=== PATIENT | male | born 1990 | race Caucasian/White ===

== ENCOUNTER → 2019-05-04 12:51 | Outpatient (CLI) | payer MEDICAID, SELFPAY ==
--- NOTE | ~2019-05-04 | XR_ITS ---
EXAMINATION: XR lumbar spine 2-3V EXAM DATE: 05/04/2019 13:25 INDICATION: Low back pain. TECHNIQUE: Lumber spine frontal, lateral, lateral L5-S1 projections for interpretation. There is no prior study for comparison. FINDINGS: Mild lumbar levoscoliosis. Vertebral body and disc heights are well-maintained. There is 3 mm retrolisthesis L5 on S1. Facet joints are unremarkable. No spondylolysis. Sacrum, sacroiliac join ts, sacral arcuate lines are intact. Paraspinal soft tissue is unremarkable. IMPRESSION: Mild lumbar levoscoliosis. Reviewed, dictated and finalized at location B. 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
--- NOTE | ~2019-05-04 | XR_ITS ---
EXAMINATION: XR chest 2V EXAM DATE: 05/04/2019 13:25 INDICATION: Tobacco use. Low back pain. TECHNIQUE: Frontal and lateral projections of the chest obtained and reviewed. There is no prior megan dy for comparison. FINDINGS: The lungs are clear. There are no pleural effusions. The cardiomediastinal silhouette is within normal limits. There is no pneumothorax suspected. Mild thoracolumbar scoliosis. IMPRESSION: Clear lungs. Reviewed, dictated and finalized at location B. 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
== END ==
PROVIDERS: PCP Emergency Medicine; Visit Provider Emergency Medicine
DX: M54.5 Low back pain (principal)
CPT/HCPCS: 71046; 72100

== ENCOUNTER 2020-02-01 13:26 | Emergency (ER) | payer OTHER, SELFPAY ==
[2020-02-01 13:27] VITALS: BP 146/103; PULSE 94; RESP 18; TEMP 36.8; O2SAT 100
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
== END 2020-02-01 14:07 | disposition home or self-care (01) ==
PROVIDERS: Emergency Provider Emergency Medicine; PCP Emergency Medicine
DX: S06.0X0A Concussion without loss of consciousness, initial encounter (principal); Y35.813A Legal intervention involving manhandling, suspect injured, initial encounter
CPT/HCPCS: 99283

== ENCOUNTER 2020-09-18 17:43 | Emergency (ER) | payer OTHER, SELFPAY ==
--- NOTE | ~2020-09-18 | XR_ITS ---
EXAMINATION: XR chest 2V 09/18/2020 18:11 INDICATION: Chest pain and shortness of breath PROCEDURE: Two-view chest COMPARISON: 05/04/2019 FINDINGS: The lungs are clear. The lungs are hyperinflated which is consistent with, but not diagnost ic of chronic obstructive pulmonary disease. The cardiomediastinal silhouette is within normal limits . There are no pleural effusions. There is no pneumothorax suspected. IMPRESSION: 1: NO ACUTE CARDIOPULMONARY DISEASE. Reviewed, dictated and finalized at location A.
[2020-09-18 17:45] VITALS: BP 144/97; PULSE 127; RESP 18; TEMP 36.3; O2SAT 100
--- NOTE | 2020-09-18 17:54 | ECG_ITS ---
Measurements Intervals [place] Rate: 119 P: 117 [place]: 136 QRS: 106 QRSD: 87 T: 127 QT: 308 QTc: 435 Interpretive Statements SINUS TACHYCARDIA ARM LEADS REVERSED BORDERLINE T WAVE ABNORMALITY- INFERIOR LEADS BASELINE ARTIFACT- I, II, AVR, AVL, AVF, V1 ABNORMAL ECG Electronically Signed On 09-19-2020 7:34:02 CDT by Reinaldo Ricks D.O.
[2020-09-18 18:04] LABS: Basophils Absolute Auto 0.1 K/mm3 (0.0-0.1); Basophils Percent Auto 0.7 % (0.2-1.2); Eosinophils Absolute Auto 0.2 K/mm3 (0-0.3); Eosinophils Percent Auto 1.7 % (0-4.4); Hematocrit 53.2 % (42.0-52.0); Hemoglobin 17.9 g/dL (14.0-18.0); Immature Granulocyte Absolute 0.16 K/mm3 (0.00-0.031); Immature Granulocyte Percent A 1.2 % (0-0.5); Lymphocytes Absolute Auto 2.81 K/mm3 (0.9-3.2); Lymphocytes Percent Auto 20.5 % (18.3-44.2); Mean Corpuscular HGB Conc 33.6 g/dl (32-36); Mean Corpuscular Hemoglobin 28.7 pg (26-34); Mean Corpuscular Volume 85.4 fl (80-100); Mean Platelet Volume 9.6 fl (7.4-10.4); Monocytes Absolute Auto 0.8 K/mm3 (0.1-0.6); Monocytes Percent Auto 5.7 % (2.6-8.5); Neutrophils Absolute Auto 9.6 K/mm3 (1.3-6.7); Neutrophils Percent Auto 70.2 % (45.5-73.1); Platelet Count Result 348 k/mm3 (150-375); Red Blood Count 6.23 M/mm3 (4.6-6.20); Red Cell Distribution Width 12.6 % (11.5-14.5); White Blood Count 13.7 K/mm3 (4.5-10.0)
[2020-09-18 18:14] LABS: INR 0.9; Prothrombin Time 12.3 Seconds (11.1-14.7)
[2020-09-18 18:15] LABS: Partial Thromboplastin Time 24.9 SECONDS (22.3-36.8)
[2020-09-18 18:25] LABS: Anion Gap 14 mmol/L (8-16); Blood Urea Nitrogen 18 mg/dL (9-20); Calcium 10.1 mg/dL (8.4-10.2); Carbon Dioxide 27 mmol/L (22-30); Chloride 103 mmol/L (98-107); Estimated CRCL calculation 92 ml/min; Estimated Glomerular Filt Rate > 60; Glucose 97 mg/dL (75-110); Potassium 4.2 mmol/L (3.4-5.0); Sodium 144 mmol/L (137-145)
[2020-09-18 18:36] LABS: Troponin I < 0.012 ng/mL (0.000-0.034)
[2020-09-18 18:41] VITALS: BP 125/82; PULSE 97; RESP 16; O2SAT 100
[2020-09-18] MEDS: diazePAM (*CRX) 5 MG TABLET PO (18:57)
[2020-09-18] MEDS: ASPIRIN 81 MG CHEWABLE TABLET 324 MG PO (18:57)
--- NOTE | 2020-09-18 20:06 | PC.NURSE ---
Pt states that he presented to ED due to chest pain that onset at approx 1400 today. Denies nvd, sob, fever and chills at this time. Pt rates chest pain 1/10 at this time and states he feels better at this time. Pt resting on cart with spouse at bedside and is alert and oriented x4 with stable vitals and is in no obvious distress. Call button and personal items within reach. Pt advised to press call button for assistance
[2020-09-18 20:08] VITALS: BP 129/79; PULSE 101; RESP 21; O2SAT 100
--- NOTE | 2020-09-18 20:45 | PC.NURSE ---
EDPA at bedside to update pt and family on poc. All questions and concerns addressed.
[2020-09-18 21:09] VITALS: BP 126/76; PULSE 102; RESP 18; O2SAT 100
[2020-09-18] MEDS: LORazepam (*CRX) 1 MG TABLET PO (21:09)
--- NOTE | 2020-09-18 21:34 | ED.GENADULT ---
HPI - General Adult General Chief complaint: Anxiety Stated complaint: panic attack, dizziness, sob Time Seen by Provider: 09/18/20 18:28 Source: patient, family and RN notes reviewed Mode of arrival: ambulatory Limitations: no limitations History of Present Illness HPI narrative: Patient 30-year-old male who presents to emergency department for evaluation of anxiety patient has longstanding history of anxiety and presents feeling uncomfortable with chest discomfort patient notes he did smoke methamphetamine has longstanding history of smoking meth patient denies any recent illness or other complaints and on arrival is acutely anxious patient denies vomiting diarrhea Related Data Home Medications Medication Instructions Recorded Confirmed lithium carbonate mg 02/01/20 propranolol 02/01/20 Allergies Allergy/AdvReac Type Severity Reaction Status Date / Time No Known Allergies Allergy Verified 02/01/20 13:31 Review of Systems Review of Systems: All systems reviewed & are unremarkable except as noted in HPI and below PMFSH Past Medical History Medical History Methamphetamine abuse Surgical History Surgical History [place] teeth extracted Social History Social History Substance use: former Substance use type: amphetamines Gender identity (if verbalized by the patient): Male Exam Narrative: Exam Narrative: GENERAL: Well-appearing, well-nourished, and in no acute distress. HEAD: Normocephalic, atraumatic. EYES: PERRLA and EOMI. ENT: Nares clear, no rhinorrhea or epistaxis. Mucous membranes moist. CHEST: Clear to auscultation. No respiratory distress. No wheezes rales or rhonchi HEART: Regular rate and rhythm. No murmur heard. Normal peripheral pulses. ABDOMEN: Soft, nontender, nondistended EXTREMITIES: Normal range of motion. No edema. SKIN: Warm, dry, no rash. NEURO: No focal deficits. Alert and oriented x3. Cranial nerves II through XII grossly intact PSYCH: Acutely anxious with normal affect. Course Course Emergency Course: Patient was medicated and counseled and feels much better at this time no high risk changes in his evaluation will be discharged home with outpatient follow-up with primary care Vital Signs Vital signs: Vital Signs Temperature 97.3 F L 09/18/20 17:45 Pulse Rate 127 H 09/18/20 17:45 Respiratory Rate 18 09/18/20 17:45 Blood Pressure 144/97 H 09/18/20 17:45 Pulse Oximetry 100 09/18/20 17:45 Temperature 97.3 F L 09/18/20 17:45 Pulse Rate 102 H 09/18/20 21:09 Respiratory Rate 18 09/18/20 21:09 Blood Pressure 126/76 09/18/20 21:09 Pulse Oximetry 100 09/18/20 21:09 Medical Decision Making MDM Narrative Medical decision making narrative: Patients EKGs and labs are without significant high risk changes. Cardiac risk factors were reviewed. Patient is felt likely to be low risk for ACS and reasonable for further risk stratification testing as an outpatient. Pain was not sudden or maximal in onset without tearing or ripping. quality. No other signs or symptoms to suggest aortic dissection. A low-risk Wells criteria is noted. PE is felt to be unlikely. No pneumonia or URI symptoms were seen on evaluation today. Patient is felt to b reasonable for continued evaluation as an outpatient. Vital Signs Vital Signs: Vital Signs Temperature 97.3 F L 09/18/20 17:45 Pulse Rate 127 H 09/18/20 17:45 Respiratory Rate 18 09/18/20 17:45 Blood Pressure 144/97 H 09/18/20 17:45 Pulse Oximetry 100 09/18/20 17:45 Temperature 97.3 F L 09/18/20 17:45 Pulse Rate 102 H 09/18/20 21:09 Respiratory Rate 18 09/18/20 21:09 Blood Pressure 126/76 09/18/20 21:09 Pulse Oximetry 100 09/18/20 21:09 Lab Data Result diagrams: 09/18/20 17:56 09/18/20 17:56
--- NOTE | 2020-09-18 21:48 | PC.NURSE ---
Pt states he feels better since medication administration. Vitals remain stable and pt in no obvious distress. Vitals are stable and spouse remains at bedside.
[2020-09-18 21:49] VITALS: BP 117/75; PULSE 94; RESP 20; TEMP 36.8; O2SAT 99
[2020-09-18 21:53] VITALS: BP 117/75; PULSE 94; RESP 20; TEMP 36.8; O2SAT 99
== END 2020-09-18 21:54 | disposition home or self-care (01) ==
PROVIDERS: Emergency Provider Emergency Medicine; PCP Physician Assistant
DX: F41.9 Anxiety disorder, unspecified (principal); R00.0 Tachycardia, unspecified
CPT/HCPCS: 36415; 71046; 80048; 84484; 85025; 85610; 85730; 93005; 99284; A9270

== ENCOUNTER 2020-12-23 17:44 | Emergency (ER) | payer OTHER, SELFPAY ==
[2020-12-23 17:54] VITALS: BP 129/79; PULSE 101; RESP 20; TEMP 37.1; O2SAT 100
--- NOTE | 2020-12-23 18:12 | ED.GENADULT ---
HPI - General Adult General Chief complaint: Dental/Oral Stated complaint: pos skin abcess Source: patient and family Mode of arrival: ambulatory Limitations: no limitations History of Present Illness HPI narrative: Patient is a 30-year-old male who presents to the [facility] via POV for evaluation of a dental problem that began yesterday. Additionally he reports a boil on left gum just behind left lower 3rd tooth. He reports left lower jaw swelling and that the gum is erythematous, painful, and swollen. Pain was reduced after expressing contents. He reports contents was a purulent drainage. Nothing worsens symptoms. Related Data Home Medications Medication Instructions Recorded Confirmed No Home Medications 12/23/20 12/23/20 Allergies Allergy/AdvReac Type Severity Reaction Status Date / Time No Known Allergies Allergy Verified 12/23/20 18:00 Review of Systems Review of Systems: Denies poor dentition and drug use. Pertinent negatives fever, chills, sweats, poor p.o. intake, change in appetite, recent weight loss, malaise, headache, dizziness, skin color changes, lymphadenopathy, ear pain/drainage, nasal drainage/congestion, hearing loss, tinnitus, vertigo, inability to swallow, drooling, sore throat, nausea, vomiting, sob, chest pain, and heart palpitations/murmurs. [facility] Past Medical History Medical History Methamphetamine abuse Surgical History Surgical History [place] teeth extracted Social History Social History Substance use: former Substance use type: amphetamines Gender identity (if verbalized by the patient): Male Comments My Exam Narrative: GENERAL: Well-appearing, well-nourished, and in no acute distress. HEAD: Normocephalic, atraumatic. No sinus tenderness or facial swelling. NECK: Supple. No lymphadenopathy or nuchal rigidity. CHEST: Lung sounds are clear to auscultation in bilateral lung deal. No respiratory distress. No evidence of cough upon examination. HEART: Regular rate and rhythm. No murmurs, gallops, or rubs heard. Normal peripheral pulses. Eyes: PERRLA and EOMI. Bilateral conjunctiva with erythema. Normal sclera, eyelids, and eyelashes. Periorbital areas without swelling, erythema, and warmth. No drainage appreciated. ENT: Ears: TMs pearly meneses. No bulging, erythema, or fluid appreciated. External auditory canals are Nose: Nares clear, no rhinorrhea or epistaxis. No swelling or erythema. Throat/Mouth: No evidence of swelling, erythema, exudate, peritonsillar mass, lesions, ulcers or drooling. Uvula is midline and without erythema and swelling. Mucous membranes moist. Voice and breath odor normal. Small abscess with surrounding mild cellulitis noted to left lower gum posterior to tooth #22. Mild dental carries noted. No avulsion, or fracture teeth. EXTREMITIES: Normal range of motion. No edema. SKIN: Warm, dry, no rash. No skin color changes. Excellent turgor. NEURO: No focal deficits. Alert and oriented x3. Course Vital Signs Vital signs: Vital Signs Temperature 98.8 F 12/23/20 17:54 Pulse Rate 101 H 12/23/20 17:54 Respiratory Rate 20 12/23/20 17:54 Blood Pressure 129/79 12/23/20 17:54 Pulse Oximetry 100 12/23/20 17:54 Temperature 98.8 F 12/23/20 17:54 Pulse Rate 101 H 12/23/20 17:54 Respiratory Rate 20 12/23/20 17:54 Blood Pressure 129/79 12/23/20 17:54 Pulse Oximetry 100 12/23/20 17:54 Due to an elevated blood pressure, I had a detailed discussion with the patient and/or guardian regarding the need for follow-up with their primary care provider within the next 3-4 days. Patient verbalized understanding and agreed. Medical Decision Making Differential Diagnosis Differential Diagnosis: Dental abscess, cellulitis, periductal disease, dental caries Medica
== END 2020-12-23 18:30 | disposition home or self-care (01) ==
PROVIDERS: Emergency Provider Nurse Practitioner Family
DX: K04.7 Periapical abscess without sinus (principal)
CPT/HCPCS: 99213; G0463

== ENCOUNTER 2021-06-23 10:59 | Emergency (ER) | payer OTHER, SELFPAY ==
--- NOTE | 2021-06-23 11:01 | ECG_ITS ---
Measurements Intervals [place] Rate: 106 P: 73 [place]: 144 QRS: 60 QRSD: 85 T: 42 QT: 319 QTc: 425 Interpretive Statements SINUS TACHYCARDIA BASELINE ARTIFACT- II, III, AVL BORDERLINE ECG Electronically Signed On 06-23-2021 12:16:47 OCCUPATIONAL NURSE by Reinaldo Ricks D.O.
[2021-06-23 11:11] VITALS: BP 153/81; PULSE 114; RESP 20; TEMP 36.6; O2SAT 100
== END 2021-06-23 11:20 | disposition left against medical advice (07) ==
PROVIDERS: Emergency Provider Emergency Medicine
DX: R07.9 Chest pain, unspecified (principal)
CPT/HCPCS: 93005; 99199